=== PATIENT | female | born 1980 | race Caucasian/White ===

== ENCOUNTER 2021-12-19 16:48 | Emergency (ER) | payer MEDICAID ==
[~2021-12-19] VITALS: Ht 180.3 cm; Wt 112.9 kg
[2021-12-19 16:54] VITALS: BP 195/95
--- NOTE | 2021-12-19 17:15 | NUR ---
41 Y/O FEMALE BIB SELF FOR C/O BUMP ON THE RIGHT BREAST SHE NOTICED APPROX. 2 WKS AGO. SHE HAS HAD REDNESS WITH A "BURNING SENSATION WHICH OCCURS TO TOUCH AND WHEN MOVING THE R ARM. PT. DENIES N/V/D. SHE HAS NOT HAD FEVER OR CHILLS. PMH: HYPOTHYROIDISM MED: SYNTHROID NKA
[2021-12-19] MEDS ORDERED: ACETAMINOPHEN EXTRA STRENGTH 500 MG TAB PO ONE (17:20)
--- NOTE | 2021-12-19 17:34 | NUR ---
US AT PT BEDSIDE.
--- NOTE | 2021-12-19 18:36 | NUR ---
DR. CINDY Lou PT. BEDSIDE
--- NOTE | 2021-12-19 18:41 | NUR ---
Patient discharged with v/s stable. Written and verbal after care instructions given and explained. Patient verbalized understanding. Ambulatory with steady gait. All questions addressed prior to discharge. Advised to follow up with PMD.
[2021-12-19 18:45] VITALS: BP 132/75
== END 2021-12-19 18:45 | disposition home or self-care (01) ==
LOC: MED 16:48
DX: N63.0 Unspecified lump in unspecified breast (principal); N60.01 Solitary cyst of right breast; R03.0 Elevated blood-pressure reading, without diagnosis of hypertension; E07.9 Disorder of thyroid, unspecified; Z98.890 Other specified postprocedural states
CPT/HCPCS: 76641; 99284; Q0092

== ENCOUNTER 2023-09-24 12:54 | Emergency (ER) | payer MEDICAID, OTHER ==
[~2023-09-24] VITALS: Ht 175.3 cm; Wt 72.6 kg
[2023-09-24 13:25] VITALS: BP 121/71; PULSE 99; RESP 18; TEMP 98; O2SAT 98
[2023-09-24] MEDS ORDERED: LORA1T1237 PO (14:11)
[2023-09-24] MEDS ORDERED: CODE118S PO (14:11)
[2023-09-24 14:26] VITALS: BP 120/75; PULSE 88; RESP 18; TEMP 98; O2SAT 99
== END 2023-09-24 14:26 | disposition home or self-care (01) ==
LOC: MED 12:54
DX: R05.9 Cough, unspecified (principal); M79.10 Myalgia, unspecified site; R68.83 Chills (without fever); E03.9 Hypothyroidism, unspecified; Z79.899 Other long term (current) drug therapy
CPT/HCPCS: 99282

== ENCOUNTER 2024-02-17 16:55 | Emergency (ER) | payer OTHER ==
[~2024-02-17] VITALS: Ht 182.9 cm; Wt 86.2 kg
[~2024-02-17 16:55] MED LIST: CODE118S PO; LORA1T1237 PO
[2024-02-17 17:02] VITALS: BP 115/72; PULSE 91; RESP 18; TEMP 98.9; O2SAT 99
[2024-02-17] MEDS ORDERED: AZIT250T4 PO (19:18)
[2024-02-17] MEDS ORDERED: SUD30 PO (19:18)
[2024-02-17] MEDS ORDERED: CODE-107 PO (19:18)
[2024-02-17] MEDS ORDERED: ALBU0.0912 IH (19:18)
[2024-02-17] MEDS ORDERED: METH4TAB1 PO (19:18)
== END 2024-02-17 19:24 | disposition home or self-care (01) ==
LOC: MED 16:55
DX: J20.9 Acute bronchitis, unspecified (principal); R03.0 Elevated blood-pressure reading, without diagnosis of hypertension; Z79.899 Other long term (current) drug therapy
CPT/HCPCS: 71045; 99283